=== PATIENT | female | born 1960 | race Caucasian/White ===

== ENCOUNTER 2017-11-08 14:33 | Emergency (ER) | payer OTHER ==
[~2017-11-08] VITALS: Ht 167.6 cm; Wt 76.2 kg
[2017-11-08 14:39] VITALS: TEMP 37; Ht 167.6 cm; Wt 76.2 kg
[2017-11-08] MEDS ORDERED: CITA10TA4 PO (15:20)
[2017-11-08] MEDS ORDERED: LEVO137T3 PO (15:21)
[2017-11-08] MEDS ORDERED: PRM/45 PO (15:21)
--- NOTE | 2017-11-08 15:41 | DIAGNOSTIC IMAGING REPORT ---
HEAD CT NONCONTRAST CT DOSE: 915.97 mGy.cm HISTORY: CHI/hematoma/neck pain TECHNIQUE: Multiaxial CT images of the head were performed without the use of intravenous contrast. Automated exposure control was utilized for this study. A dose lowering technique was utilized adhering to the principles of ALARA. Comparison: None. Findings: The paranasal sinuses and mastoid air cells are clear. The calvarium and skull base are intact. The ventricles and sulci are within normal limits. There is no mass, hematoma, midline shift, or acute infarct. Small posterior scalp hematoma. Impression: No acute intracranial abnormality. Posterior scalp injury. Electronically signed by: Rafi Glasgow M.D. 11/08/2017 3:39 PM Dictated Date/Time: 11/08/2017 3:35 PM
--- NOTE | 2017-11-08 15:50 | DIAGNOSTIC IMAGING REPORT ---
CERVICAL SPINE CT CT DOSE: HISTORY: CHI/hematoma/neck pain TECHNIQUE: Multiaxial CT images of the cervical spine were performed and reformatted in the sagittal and coronal plane without the use of contrast. A dose lowering technique was utilized adhering to the principles of ALARA. COMPARISON: None. FINDINGS: No fractures. No subluxation. Prevertebral soft tissues and the C1-C2 interval are intact. No pneumothorax. IMPRESSION: No fractures within the cervical spine. Electronically signed by: Rafi Glasgow M.D. 11/08/2017 3:49 PM Dictated Date/Time: 11/08/2017 3:43 PM
--- NOTE | 2017-11-08 16:11 | EMERGENCY ROOM VISIT NOTE ---
History First contact with patient: 14:46 Chief Complaint: HEAD INJURY (MINOR) Stated Complaint: HEAD SWELLING, HARD TO SWALLOW RT SIDE THROAT History of Present Illness The patient is a 57 year old female who presents to the Emergency Room with complaints of a head injury and neck pain after she slipped and fell down approximately 10-15 cement steps at a local [employer]. The patient reports that she slipped on loose gravel and initially fell forward, then spun around and fell backward. The patient denies any loss of consciousness or back pain. She reports mild right posterior lateral neck discomfort and a mild headache. She started to notice immediate swelling of the posterior scalp region shortly after the fall. The fall happened approximately 2.5 hours prior to arrival. The patient was initially seen at the [facility] urgent [facility] [place] and was subsequently referred to the emergency department for further workup. The patient rates her discomfort a 4 out of 10. She denies any visual disturbance, nausea or significant fatigue. Review of Systems 10 system review was performed and was negative except for pertinent positives and negatives as indicated in history of present illness Past Medical/Surgical History Medical Problems: (1) Anxiety (2) Hypothyroidism Surgical Problems: (1) No history of previous surgery Family History Unremarkable Social History Smoking Status: Never Smoker Alcohol Use: occasionally Marital Status: Housing Status: lives with family Occupation Status: employed Current/Historical Medications Scheduled Citalopram Hydrobromide (Citalopram Hydrobromide), 30 MG PO DAILY Estrogens, Conjugated (Premarin), 0.45 MG PO DAILY Levothyroxine Sodium (Levothyroxine Sodium), 137 MCG PO DAILY Physical Exam Vital Signs Date Time Temp Pulse Resp B/P (MAP) Pulse Ox O2 Delivery O2 Flow Rate FiO2 11/08/17 14:39 37.0 79 20 169/89 98 Room Air Physical Exam CONSTITUTIONAL: Healthy and well nourished. Alert and oriented X 3 with positive affect. Patient does not appear in any acute distress. GCS 15. HEENT: Examination shows a mild occipital hematoma. No laceration noted. Pupils equal, round and reactive. No epistaxis, subconjunctival hemorrhage, hemotympanum, raccoon's eyes or banks sign. NECK: Patient has minimal tenderness to palpation of the right posterior lateral soft tissue and muscle. She has no focal tenderness through the central cervical spine. No tenderness to palpation through the sternocleidomastoids. The patient is actively moving the neck without any significant discomfort. RESPIRATORY: Clear to auscultation bilaterally with no wheezing, crackles, rhonchi or stridor. CARDIOVASCULAR: Regular rate and rhythm with no murmurs, rubs or gallops. MUSCULOSKELETAL: Full range of motion of all joints without discomfort. Patient has no tenderness to palpation of the intrascapular region. She has full range of motion of the shoulders without discomfort. Equal handgrip bilaterally. No focal tenderness through the central thoracolumbar spine. INTEGUMENTARY: No rash or other significant dermatologic conditions noted. NEUROLOGIC: Cranial nerves II-XII grossly intact. No focal neurologic deficits noted. Negative pronator drift. No ataxia with ambulation. Medical Decision & Procedures ER Provider Diagnostic Interpretation: Noncontrast CT of the head does not show any evidence for fracture or intracranial bleed. Radiologist report is as follows: HEAD CT NONCONTRAST CT DOSE: 915.97 mGy.cm HISTORY: CHI/hematoma/neck pain TECHNIQUE: Multiaxial CT images of the head were performed without the use of intravenous contrast. Automated exposure control was utilized for this study. A dose lowering technique was utilized adhering to the principles of ALARA. Comparison: None. Findings: The paranasal sinuses and mastoid air cells are clear. The calvarium and skull base are intact. The ventricles and sulci are within normal limits. There is no mass, hematoma, midline shift, or acute infarct. Small posterior scalp hematoma. Impression: No acute intracranial abnormality. Posterior scalp injury. Noncontrast CT of the cervical spine does not show any obvious fractures. Radiologist report is as follows: CERVICAL SPINE CT CT DOSE: HISTORY: CHI/hematoma/neck pain TECHNIQUE: Multiaxial CT images of the cervical spine were performed and reformatted in the sagittal and coronal plane without the use of contrast. A dose lowering technique was utilized adhering to the principles of ALARA. COMPARISON: None. FINDINGS: No fractures. No subluxation. Prevertebral soft tissues and the C1-C2 interval are intact. No pneumothorax. IMPRESSION: No fractures within the cervical spine. ED Course Patient history and physical exam were performed. Nurse's notes were reviewed. Vital signs were reviewed, showing an elevated blood pressure of 169/80. The patient does not appear in any acute distress. GCS 15. The patient refused any analgesics on initial exam. Noncontrast CT of the head and cervical spine were normal. The patient was encouraged to intermittently apply ice to areas of discomfort. Ibuprofen and Tylenol in alternating fashion as needed for additional pain relief. She was encouraged to follow-up with her PCP as needed for any persistent symptoms, returning to the emergency department for any progressively worsening headache, vomiting, concerning neurologic symptoms or other concerning findings. The patient was happy with plan of care, voiced understanding of all discharge instructions, and rated her overall discomfort a 3 out of 10 at the time of discharge. The patient was encouraged to have her PCP recheck her blood pressure as her pressure was elevated in the emergency department. Medical Decision Medication Reconcilliation Current Medication List: was personally reviewed by me Blood Pressure Screening Patient's blood pressure: Elevated blood pressure Blood pressure disposition: Referred to PCP Impression Primary Impression: Cervical strain Additional Impressions: Scalp hematoma Fall down steps Elevated blood pressure reading Departure Information Referrals No Doctor, Assigned (PCP) Patient Instructions [facility] Problem Qualifiers Primary Impression: Cervical strain Encounter type: initial encounter Qualified Codes: S16.1XXA - Strain of muscle, fascia and tendon at neck level, initial encounter Additional Impressions: Scalp hematoma Encounter type: initial encounter Qualified Codes: S00.03XA - Contusion of scalp, initial encounter Fall down steps Encounter type: initial encounter Qualified Codes: W10.8XXA - Fall (on) ( from) other stairs and steps, initial encounter
[2017-11-08 16:19] VITALS: BP 142/88; PULSE 58; O2SAT 98
== END 2017-11-08 16:29 | disposition home or self-care (01) ==
LOC: C.EDB 14:37 → C.EDD 16:29
DX: S00.03XD Contusion of scalp, subsequent encounter (principal); S16.1XXD Strain of muscle, fascia and tendon at neck level, subsequent encounter; W10.8XXD Fall (on) (from) other stairs and steps, subsequent encounter; Y92.59 Other trade areas as the place of occurrence of the external cause; F41.9 Anxiety disorder, unspecified; E03.9 Hypothyroidism, unspecified; R03.0 Elevated blood-pressure reading, without diagnosis of hypertension; Z79.899 Other long term (current) drug therapy

== ENCOUNTER 2018-08-01 16:04 | Inpatient (IN) ==
[2018-08-01] MEDS ORDERED: ACETAMINOPHEN 500 MG TAB PO STA (17:25)
[2018-08-01] MEDS ORDERED: SODIUM CHLORIDE 0.9% 1000ML 2,000 ML IV ONE (17:25)
[2018-08-01] MEDS ORDERED: ONDANSETRON INJ 2 MG/ML 2 ML VIAL IV STA (17:25)
[2018-08-01 17:39] LABS: Basophils # (auto) 0.01 K/uL (0-0.2); Basophils % (auto) 0.1 %; Eosinophils # (auto) 0.01 K/uL (0-0.5); Eosinophils % (auto) 0.1 %; Hematocrit (blood only) 36.7 % (37-47); Immature Granulocytes # (auto) 0.03 K/uL (0.00-0.02); Immature Granulocytes % (auto) 0.3 %; Lymphocytes # (auto) 0.81 K/uL (1.2-3.4); Lymphocytes % (auto) 8.7 %; Mean Corpuscular Hgb Conc 35.4 g/dL (32-36); Mean Corpuscular Volume 88.2 fL (80-100); Mean Platelet Volume 10.8 fL (7.4-10.4); Monocytes % (auto) 10.8 %; Neutrophils # (auto) 7.44 K/uL (1.4-6.5); Platelet Count 182 K/uL (130-400); RDW Standard Deviation 38.5 fL (36.4-46.3); Red Blood Count 4.16 M/uL (4.2-5.4)
[2018-08-01 17:51] LABS: Albumin Level 3.5 gm/dl (3.4-5.0); BUN Creatinine Ratio 7.6 (10-20); Calcium 8.8 mg/dl (8.5-10.1); Creatinine Clr Calc Pharmacy 72.9 ml/min; Est GFR (African American) 79.6; Est GFR (Non-African American) 68.6; Potassium 3.3 mmol/L (3.5-5.1)
[2018-08-01 17:54] LABS: Albumin Globulin Ratio 0.9 (0.9-2); Bilirubin,Total 0.5 mg/dl (0.2-1); Globulin 4.1 gm/dl (2.5-4.0); Total Protein 7.6 gm/dl (6.4-8.2)
[2018-08-01 18:32] LABS: Appearance Urine Cloudy (Clear); Bacteria Urine Automated 4+ (Negative); Bilirubin Urine Negative (Negative); Blood Urine Trace (Negative); Cast Urine Automated 0 /lpf (0-5); Color Urine Yellow; Epithelial Cell Urine Auto 0-5 /lpf (0-5); Glucose Urine UA Negative (Negative); Ketones Urine 1+ (Negative); Leukocyte Esterase Urine 3+ (Negative); Nitrite Urine Positive (Negative); Protein Urine Negative (Negative); RBC Urine Automated 0-4 /hpf (0-4); Specific Gravity Urine 1.009 (1.000-1.030); Urobilinogen Urine Negative (Negative); WBC Urine Automated >30 /hpf (0-5)
[2018-08-01] MEDS ORDERED: IOVERSOL 100ml IV PRN (18:34)
--- NOTE | 2018-08-01 18:54 | CT Scan Report ---
ABDOMEN AND PELVIS CT WITH IV CONTRAST CT DOSE: 498.26 mGy.cm HISTORY: fever L flank pain w/ recent UTI TECHNIQUE: Multiaxial CT images of the abdomen and pelvis were performed following the use of intrave nous contrast. A dose lowering technique was utilized adhering to the principles of ALARA. COMPARISON STUDY: None. FINDINGS: The lung bases are clear. No pneumoperitoneum. No pneumatosis. No fractures within the visu alized osseous structures. A 9 mm hypodense lesion within the right hepatic lobe. This is technically too small to characterize but favors a cyst. The spleen, adrenal glands, pancreas, and gallbladder a re unremarkable. No retroperitoneal lymphadenopathy. Normal caliber abdominal aorta. The bladder is u nremarkable. The uterus is surgically absent. Normal right kidney. No hydronephrosis. Heterogeneous e nhancement with adjacent fat stranding at the upper pole of the left kidney. This favors a focal pyel onephritis. No abscess identified at this time. The ureters are normal and course and caliber. Modera te well-formed stool within the colon. No bowel wall thickening or obstruction. Normal appendix. IMPRESSION: 1. Heterogeneous enhancement with adjacent fat stranding at the upper pole of the left kidney. This f avors a focal pyelonephritis. Recommend correlation with urinalysis. 2. No bowel wall thickening or obstruction. 3. No hydronephrosis. Electronically signed by: Rafi Glasgow M.D. 08/01/2018 6:53 PM
[2018-08-01] MEDS ORDERED: cefTRIAXone SODIUM 2,000 MG in DEXTROSE 5% 50 ML IV SCH (19:00)
[2018-08-01] MEDS ORDERED: POTASSIUM CHLORIDE 10 MEQ TABCR PO STA (22:04)
[2018-08-01] MEDS ORDERED: ONDANSETRON INJ 2 MG/ML 2 ML VIAL IV PRN (22:04)
[2018-08-01] MEDS ORDERED: CEFEPIME CONSULT ACTIVE PRN (22:32)
[2018-08-01] MEDS: SODIUM CHLORIDE 0.9% 1000ML 1,000 ML IV SCH (22:49)
[2018-08-01] MEDS ORDERED: CEFEPIME 2,000 MG in SYRINGE 7.5 ML IV SCH (23:00)
[2018-08-01] MEDS ORDERED: Nursing to Pharmacy Communication ONE (23:40)
[2018-08-01] MEDS: ACETAMINOPHEN 325 MG TAB PO PRN (23:44)
[2018-08-01] MEDS: LEVOTHYROXINE SODIUM 137 MCG TABLET PO SCH (23:48)
[2018-08-01] MEDS: CITALOPRAM 20 MG TAB PO SCH (23:48)
--- NOTE | 2018-08-02 00:02 | Emergency Department Note ---
Entered by Charity Coles acting as a scribe for Yogi Wilson DO History of Present Illness General Chief complaint: Illness Stated complaint: NECK/BACK HURTS, MEMORYLOSS,NAUSEA,LOSS OF BALANCE Source: patient History of Present Illness Onset (ago): day(s) 3 Location: left and right Pain Consistency: + other (worsening ) Maximum Pain Intensity: 8 Quality: + aching Associated symptoms: + fever/chills, + headaches and + other (positive back pain; positive left-sided abdominal pain; positive neck pain; negative burning with urination; positive urine odor; negative runny nose; negative sore throat; positive lightheaded with standing ); no cough and no rash The patient is a 58 year old female who presents to the Emergency Room with complaints of worsening whole body achiness that began 3 days prior to arrival. The patient states that she has had fevers and chills that began 2 days ago. The patient states that she has had left-sided neck pain for the past 2 months, and states that she has had left-sided back pain that radiates to her abdomen for the past 3 weeks. She states that this back pain has now moved to the right side of the back as well. The patient states that she had a UTI 3 times over the past two months, and states that she last took antibiotics 3 weeks ago. The patient denies any current burning with urination, but states that last week her urine had an odor. The patient denies cough, runny nose, sore throat, and rashes. She states that she had a headache this morning and states that she has been having lightheadedness with standing that resolves after a minute. Home Medications Home Medications Medication Instructions Recorded Confirmed Type calcium carbonate-vitamin D3 1 cap PO DAILY 08/01/18 08/01/18 History [Calcium 600 + D(3)] cholecalciferol (vitamin D3) 0 unit PO DAILY 08/01/18 08/01/18 History citalopram 20 mg PO DAILY 08/01/18 08/01/18 History conjugated estrogens [Premarin] 0.45 mg PO DAILY 08/01/18 08/01/18 History esomeprazole magnesium 40 mg PO DAILY 08/01/18 08/01/18 History glucosamine-chondroitin [Osteo 1 tab PO DAILY 08/01/18 08/01/18 History Bi-Flex] levothyroxine 137 mcg PO DAILY 08/01/18 08/01/18 History multivitamin [Multiple Vitamins] 1 tab PO DAILY 08/01/18 08/01/18 History omega 0-gox-ncs-fish oil [Fish Oil] 2 cap PO DAILY 08/01/18 08/01/18 History Allergies Allergy/AdvReac Type Severity Reaction Status Date / Time codeine AdvReac Severe Nausea Verified 08/01/18 20:34 erythromycin base AdvReac Severe Nausea Verified 08/01/18 20:34 Past Med/Surg History Medical History Anxiety Hypothyroidism Social History Communication Ability: Effective 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 and A total of 10 systems reviewed and were otherwise negative Physical Exam Vital Signs Vital Signs - 24 hr 08/01/18 16:09 08/01/18 17:59 08/01/18 18:02 Temperature 39.2 C H Temperature Source Oral Sepsis Recent Fever Within 48 Hours No Sepsis New/Unexplained Change in Mental Status No Sepsis Action Taken by Nursing No Action Required Pulse Rate 104 H 93 H 95 H Pulse Rate [Right Finger] Pulse Rate from SpO2 Sensor 96 H Pulse Rhythm Regular Pulse Rhythm [Right Finger] Pulse Strength [Right Finger] Respiratory Rate 18 20 18 Respiratory Effort / Characteristics Respiratory Depth Normal Blood Pressure 124/76 177/96 H Blood Pressure [Right Arm] Blood Pressure Mean 92 123 Blood Pressure Mean [Right Arm] Pulse Oximetry 99 99 97 Oxygen Delivery Method Room Air 08/01/18 18:40 08/01/18 19:04 Temperature 37.8 C H Temperature Source Oral Sepsis Recent Fever Within 48 Hours Sepsis New/Unexplained Change in Mental Status Sepsis Action Taken by Nursing Pulse Rate Pulse Rate [Right Finger] 89 Pulse Rate from SpO2 Sensor Pulse Rhythm Pulse Rhythm [Right Finger] Regular Pulse Strength [Right Finger] Normal Respiratory Rate 20 Respiratory Effort / Characteristics Non-Labored Spontaneous Respiratory Depth Normal Blood Pressure Blood Pressure [Right Arm] 142/83 H Blood Pressure Mean Blood Pressure Mean [Right Arm] 102 Pulse Oximetry 98 Oxygen Delivery Method Room Air GENERAL: Sitting up. Alert, well appearing, well nourished, no distress, non- toxic EYE EXAM: normal conjunctiva OROPHARYNX: no exudate, no erythema, lips, buccal mucosa, and tongue normal and mucous membranes are moist NECK: supple, no nuchal rigidity, no adenopathy, non-tender LUNGS: Clear to auscultation. Normal chest wall mechanics HEART: no murmurs, S1 normal and S2 normal ABDOMEN: abdomen soft, non-tender, normo-active bowel sounds, no masses, no rebound or guarding. BACK: Back is symmetrical on inspection and there is no deformity, no midline tenderness. Tender throughout the left flank. Positive left CVA tenderness. SKIN: no rashes and no bruising UPPER EXTREMITIES: upper extremities are grossly normal. LOWER EXTREMITIES: No pitting edema. NEURO EXAM: Normal sensorium, cranial nerves II-XII intact, normal speech, no weakness of arms, no weakness of legs. Course ED COURSE: Vital signs were reviewed and showed febrile and tachycardic. The patients medical record was reviewed The above diagnostic studies were performed and reviewed. ED treatments and interventions as stated above. 1718: The patient was evaluated in room A3. A complete history and physical examination was performed. 1939: Upon reevaluation, the patient has some chills but is feeling better.I discussed my findings with the patient and she understands and agrees with the treatment plan. Based on the patients age, coexisting illnesses, exam and lab findings the decision to treat as an inpatient was made. The patient remained stable while under my care. 1943: I [facility] the [facility] further evaluation. Administered Medications Acetaminophen (Tylenol) 650 mg PO Q4H PRN PRN Reason: pain/fever Stop: 08/31/18 22:03 Last Admin: 08/01/18 23:44 Dose: 650 mg Documented by: [id number] Citalopram Hydrobromide (Celexa) 20 mg PO DAILY LIZZIE Stop: 09/01/18 08:59 Last Admin: 08/01/18 23:48 Dose: 20 mg Documented by: [id number] Admin: 08/01/18 23:48 Dose: 20 mg Documented by: [id number] Sodium Chloride (Nss 1000ml) 1,000 mls @ 125 mls/hr IV .Q8H LIZZIE Stop: 08/31/18 22:03 Last Admin: 08/01/18 22:49 Dose: 125 mls/hr Documented by: [id number] Cefepime HCl 2,000 mg/ Syringe 20 mls @ 5.5 mls/min IV Q12H LIZZIE; Protocol Stop: 08/11/18 22:59 Last Admin: 08/01/18 23:43 Dose: 5.5 mls/min Documented by: [id number] Levothyroxine Sodium (Levothyroxine Sodium) 137 mcg PO DAILYBB LIZZIE Stop: 09/01/18 06:29 Last Admin: 08/01/18 23:48 Dose: 137 mcg Documented by: [id number] Admin: 08/01/18 23:48 Dose: 137 mcg Documented by: [id number] Discontinued Medications Acetaminophen (Tylenol) 1,000 mg PO NOW STA Stop: 08/01/18 17:26 Last Admin: 08/01/18 17:54 Dose: 1,000 mg Documented by: [id number] Sodium Chloride (Nss 1000ml) 2,000 mls @ 999 mls/hr IV .Q2H1M ONE Stop: 08/01/18 19:25 Last Infusion: 08/01/18 19:58 Dose: 0 mls/hr Documented by: [id number] Admin: 08/01/18 17:49 Dose: 999 mls/hr Documented by: [id number] Ceftriaxone Sodium 2,000 mg/ (Dextrose) 70 mls @ 100 mls/hr IV DAILY LIZZIE; Annemarie col Stop: 08/03/18 18:59 Last Infusion: 08/01/18 19:58 Dose: 0 mls/hr Documented by: [id number] Admin: 08/01/18 19:04 Dose: 100 mls/hr Documented by: [id number] Ioversol (Optiray 320 100ml) 89 ml IV ONCE PRN PRN Reason: Interaction Checking Stop: 08/05/18 18:33 Last Admin: 08/01/18 18:34 Dose: 89 ml Documented by: [id number] Ondansetron HCl (Zofran) 4 mg IV NOW STA Stop: 08/01/18 17:26 Last Admin: 08/01/18 17:52 Dose: 4 mg Documented by: [id number] Potassium Chloride (Klor-Con M10) 20 meq PO NOW STA Stop: 08/01/18 22:05 Last Admin: 08/01/18 23:42 Dose: 20 meq Documented by: [id number] Medical Decision Making Differential Diagnosis Differential diagnosis: Etiologies such as sepsis, UTI, pneumonia, metabolic, electrolyte abnormalities, cardiac sources, intracerebral event, toxicologic, neurologic, as well as others were entertained. Medical Records Attestation: I reviewed the patient's medical records. Home Medications Current Medication List: was personally reviewed by me Laboratory Data Attestation: I reviewed the patient's lab results. Result diagrams: 08/01/18 17:03 08/01/18 17:03 Lab Results 08/01/18 08/01/18 08/01/18 Range/Units 17:03 17:03 17:41 WBC 9.30 (4.8-10.8) K/uL RBC 4.16 L (4.2-5.4) M/uL Hgb 13.0 (12.0-16.0) g/dL Hct 36.7 L (37-47) % MCV 88.2 (80-100) fL MCH 31.3 (25-34) pg MCHC 35.4 (32-36) g/dL RDW Std Deviation 38.5 (36.4-46.3) fL RDW Coeff of Bryant 12.0 (11.5-14.5) % Plt Count 182 (130-400) K/uL MPV 10.8 H (7.4-10.4) fL Immature Gran % (Auto) 0.3 % Neut % (Auto) 80.0 % Lymph % (Auto) 8.7 % [place] % (Auto) 10.8 % Eos % (Auto) 0.1 % Baso % (Auto) 0.1 % Immature Gran # (Auto) 0.03 H (0.00-0.02) K/uL Neut # (Auto) 7.44 H (1.4-6.5) K/uL Lymph # (Auto) 0.81 L (1.2-3.4) K/uL [place] # (Auto) 1.00 H (0.11-0.59) K/uL Eos # (Auto) 0.01 (0-0.5) K/uL Baso # (Auto) 0.01 (0-0.2) K/uL Sodium 137 (136-145) mmol/L Potassium 3.3 L (3.5-5.1) mmol/L Chloride 104 (98-107) mmol/L Carbon Dioxide 24 (21-32) mmol/L Anion Gap 9.0 (3-11) BUN 7 (7-18) mg/dl Creatinine 0.92 (0.6-1.2) mg/dl Est Cr Clr Drug Dosing 72.9 ml/min Est GFR ( Amer) 79.6 Est GFR (Non-Af Amer) 68.6 BUN/Creatinine Ratio 7.6 L (10-20) Glucose 97 (70-99) mg/dl POC Lactic Acid Tom 0.92 (0.90-1.70) mmol/L Calcium 8.8 (8.5-10.1) mg/dl Total Bilirubin 0.5 (0.2-1) mg/dl AST 28 (15-37) U/L ALT 34 (12-78) U/L Alkaline Phosphatase 87 (45-117) U/L Total Protein 7.6 (6.4-8.2) gm/dl Albumin 3.5 (3.4-5.0) gm/dl Globulin 4.1 H (2.5-4.0) gm/dl Albumin/Globulin Ratio 0.9 (0.9-2) Lipase 54 L (73-393) U/L Urine Color Urine Appearance (Clear) Urine pH (4.5-7.5) Ur Specific [place] (1.000-1.030) Urine Protein (Negative) Urine Glucose (UA) (Negative) Urine Ketones (Negative) Urine Blood (Negative) Urine Nitrite (Negative) Urine Bilirubin (Negative) Urine Urobilinogen (Negative) Ur Leukocyte Esterase (Negative) Urine WBC (Auto) (0-5) /hpf Urine RBC (Auto) (0-4) /hpf U Hyaline Cast (Auto) (0-5) /lpf U Epithel Cells (Auto) (0-5) /lpf Urine Bacteria (Auto) (Negative) POC Ur Test (NEG) Influenza Type A Ag (Neg) Influenza Type B Ag (Neg) 08/01/18 08/01/18 08/01/18 Range/Units 18:02 18:02 19:05 WBC (4.8-10.8) K/uL RBC (4.2-5.4) M/uL Hgb (12.0-16.0) g/dL Hct (37-47) % MCV (80-100) fL MCH (25-34) pg MCHC (32-36) g/dL RDW Std Deviation (36.4-46.3) fL RDW Coeff of Bryant (11.5-14.5) % Plt Count (130-400) K/uL MPV (7.4-10.4) fL Immature Gran % (Auto) % Neut % (Auto) % Lymph % (Auto) % [place] % (Auto) % Eos % (Auto) % Baso % (Auto) % Immature Gran # (Auto) (0.00-0.02) K/uL Neut # (Auto) (1.4-6.5) K/uL Lymph # (Auto) (1.2-3.4) K/uL [place] # (Auto) (0.11-0.59) K/uL Eos # (Auto) (0-0.5) K/uL Baso # (Auto) (0-0.2) K/uL Sodium (136-145) mmol/L Potassium (3.5-5.1) mmol/L Chloride (98-107) mmol/L Carbon Dioxide (21-32) mmol/L Anion Gap (3-11) BUN (7-18) mg/dl Creatinine (0.6-1.2) mg/dl Est Cr Clr Drug Dosing ml/min Est GFR ( Amer) Est GFR (Non-Af Amer) BUN/Creatinine Ratio (10-20) Glucose (70-99) mg/dl POC Lactic Acid Tom (0.90-1.70) mmol/L Calcium (8.5-10.1) mg/dl Total Bilirubin (0.2-1) mg/dl AST (15-37) U/L ALT (12-78) U/L Alkaline Phosphatase (45-117) U/L Total Protein (6.4-8.2) gm/dl Albumin (3.4-5.0) gm/dl Globulin (2.5-4.0) gm/dl Albumin/Globulin Ratio (0.9-2) Lipase (73-393) U/L Urine Color Yellow Urine Appearance Cloudy A (Clear) Urine pH 6.0 (4.5-7.5) Ur Specific [place] 1.009 (1.000-1.030) Urine Protein Negative (Negative) Urine Glucose (UA) Negative (Negative) Urine Ketones 1+ H (Negative) Urine Blood Trace H (Negative) Urine Nitrite Positive A (Negative) Urine Bilirubin Negative (Negative) Urine Urobilinogen Negative (Negative) Ur Leukocyte Esterase 3+ H (Negative) Urine WBC (Auto) >30 H (0-5) /hpf Urine RBC (Auto) 0-4 (0-4) /hpf U Hyaline Cast (Auto) 0 (0-5) /lpf U Epithel Cells (Auto) 0-5 (0-5) /lpf Urine Bacteria (Auto) 4+ H (Negative) POC Ur Test NEG (NEG) Influenza Type A Ag Neg for Influ A (Neg) Influenza Type B Ag Neg for Influ B (Neg) Imaging Data Radiologist's Impression: Radiology results as stated below per my review and the radiologist's interpretation: ABDOMEN AND PELVIS CT WITH IV CONTRAST CT DOSE: 498.26 mGy.cm HISTORY: fever L flank pain w/ recent UTI TECHNIQUE: Multiaxial CT images of the abdomen and pelvis were performed following the use of intravenous contrast. A dose lowering technique was utilized adhering to the principles of ALARA. COMPARISON STUDY: None. FINDINGS: The lung bases are clear. No pneumoperitoneum. No pneumatosis. No fractures within the visualized osseous structures. A 9 mm hypodense lesion within the right hepatic lobe. This is technically too small to characterize but favors a cyst. The spleen, adrenal glands, pancreas, and gallbladder are unremarkable. No retroperitoneal lymphadenopathy. Normal caliber abdominal aorta. The bladder is unremarkable. The uterus is surgically absent. Normal right kidney. No hydronephrosis. Heterogeneous enhancement with adjacent fat stranding at the upper pole of the left kidney. This favors a focal pyelonephritis. No abscess identified at this time. The ureters are normal and course and caliber. Moderate well-formed stool within the colon. No bowel wall thickening or obstruction. Normal appendix. IMPRESSION: 1. Heterogeneous enhancement with adjacent fat stranding at the upper pole of the left kidney. This favors a focal pyelonephritis. Recommend correlation with urinalysis. 2. No bowel wall thickening or obstruction. 3. No hydronephrosis. Electronically signed by: Rafi Glasgow M.D. 08/01/2018 6:53 PM Blood Pressure Blood Pressure Findings: Elevated blood pressure Blood Pressure Disposition: elevated BP felt to be situational MDM Narrative Patient is a 58-year-old female who presents the ER for fevers associate with back and flank pain. Vitals show the patient is febrile and tachycardic. Labs showed no significant leukocytosis or anemia. BMP with mild hypokalemia. LFTs bilirubin and lipase is unremarkable. UA with nitrates leuks white cells and bacteria. was negative. Influenza was negative. CT confirms pyelonephritis as well as exam. Patient was given IV Rocephin, 2 L IV fluids, Tylenol and updated at bedside. Discussed case with the hospitalist for admission secondary to sepsis and pyelonephritis. Impression & Plan Sepsis, Pyelonephritis Discharge Plan Visit Data *Final* Discharge Date/Time: 08/01/18 21:53 Chief Complaint: Illness Stated Complaint: NECK/BACK HURTS, MEMORYLOSS,NAUSEA,LOSS OF BALANCE ED Provider: Yogi Wilson Discharge Problem: Sepsis, Pyelonephritis Patient Disposition: Admitted As Inpatient Discharge Instructions Interventions: ED Discharge Assessment Last Done: 08/01/18 21:53 Discharge Problem: Sepsis Qualifiers: Sepsis type: sepsis due to unspecified organism Qualified Code(s): A41.9 - Sepsis, unspecified organism The scribe's documentation has been prepared under my direction and personally reviewed by me in its entirety. I confirm that the note above accurately reflects all work, treatment, procedures, and medical decision making performed by me.
[2018-08-02] MEDS ORDERED: AZTREONAM CONSULT ACTIVE PRN (02:56)
[2018-08-02] MEDS: ACETAMINOPHEN 325 MG TAB PO PRN ×3 (05:47→18:06)
[2018-08-02] MEDS: SODIUM CHLORIDE 0.9% 1000ML 1,000 ML IV SCH ×3 (05:48→23:22)
[2018-08-02 06:00] LABS: Hemoglobin 11.3 g/dL (12.0-16.0); Mean Corpuscular Hgb Conc 33.2 g/dL (32-36); Mean Corpuscular Volume 91.4 fL (80-100); Mean Platelet Volume 12.5 fL (7.4-10.4); Platelet Count 99 K/uL (130-400); RDW Coefficient of Variation 12.1 % (11.5-14.5); RDW Standard Deviation 40.6 fL (36.4-46.3); Red Blood Count 3.72 M/uL (4.2-5.4)
[2018-08-02 06:01] LABS: Basophils # (auto) 0.01 K/uL (0-0.2); Basophils % (auto) 0.2 %; Eosinophils # (auto) 0.03 K/uL (0-0.5); Eosinophils % (auto) 0.5 %; Immature Granulocytes # (auto) 0.02 K/uL (0.00-0.02); Immature Granulocytes % (auto) 0.3 %; Lymphocytes # (auto) 1.37 K/uL (1.2-3.4); Lymphocytes % (auto) 21.1 %; Monocytes # (auto) 1.07 K/uL (0.11-0.59); Monocytes % (auto) 16.5 %; Neutrophils % (auto) 61.4 %; Platelet Estimate Decreased (Normal); RBC Morphology Unremarkable
[2018-08-02 06:11] LABS: BUN Creatinine Ratio 9.5 (10-20); Creatinine Clr Calc Pharmacy 80.8 ml/min; Est GFR (African American) 90.1; Est GFR (Non-African American) 77.7; Potassium 3.5 mmol/L (3.5-5.1)
--- NOTE | 2018-08-02 06:35 | History and Physical Report ---
DATE OF ADMISSION: 08/01/2018 CHIEF COMPLAINT: Not feeling well, back pain, chills, sweating. HISTORY OF PRESENT ILLNESS: This is a 58-year-old female with past medical history significant for anxiety, hypothyroidism, GERD, presents with not feeling well since last Wednesday. The patient had 3 bouts of UTI since last 2 months, she took antibiotic 3 times x3 days each time. She is from [place]. She comes here for work every 6 weeks for 1 week. Since last Wednesday again she developed some burning micturition. Previous UTIs, she used to take Pyridium, she took Pyridium, the burning micturition went away and she developed severe back pain and she was taking 4 Advil and she was feeling better, but then again today she was not feeling well was nauseous and having severe back pain and feeling chills and sweaty when she came to the ER. She has a mild temperature spike in the ER, blood pressure is okay. Pulse is okay. There is no leukocytosis, but her CAT scan showing left pyelonephritis and urinalysis was positive. The patient was profusely sweating, but after Tylenol and some fluid, she is feeling better. On antibiotics, she is feeling better. Had some headache today. She has blurred vision. She recently had laser surgery and she has an appointment with fundraising specialist. No earache, no runny nose, no sore throat, no difficulty swallowing. Appetite is not great since last few days. No chest pain, no shortness of breath, no cough, some nausea today. The back pain which was radiating into the left groin has improved now, but there is no burning micturition today and there is no hematuria. Normal bowel movements. She is usually constipated. No blood in the stools. No swelling in the legs. No rash. ALLERGIES: CODEINE, ERYTHROMYCIN BASE. PAST MEDICAL HISTORY: As mentioned above. PAST SURGICAL HISTORY: She had a partial hysterectomy and appendectomy and bladder surgeries. MEDICATIONS: The patient is on Synthroid 1000 mcg daily, calcium with vitamin D daily, citalopram 20 mg daily, Premarin 0.5 mg daily, Nexium 40 mg daily, Osteo Bi-Flex 1 tablet daily, multivitamins daily, omega 3 fish oil two capsules daily. FAMILY HISTORY: Significant for father of cancer in his 50s. Mother had diabetes and heart disorder. SOCIAL HISTORY: Smokes couple of cigarettes a week. Denies any alcohol use. She is from [place]. Lives with her . REVIEW OF SYMPTOMS: As per HPI. Rest of review of systems negative. PHYSICAL EXAMINATION: GENERAL: The patient is of moderate build, not in acute distress. VITAL SIGNS: Temperature 37.8, pulse 89, respiratory rate 20, blood pressure 142/83, oxygen 98% on room air. HEENT: No pallor, no icterus. Pupils equal, round, and reactive to light. NECK: No JVD, no neck masses, no carotid bruit. CARDIOVASCULAR: S1, S2 heard, regular rate and rhythm, no murmur, no gallop. RESPIRATORY SYSTEM: Normal AP diameter. No thyromegaly. No wheezing, no crackles. ABDOMEN: Soft, bowel sounds present. Nontender. No distention. CENTRAL NERVOUS SYSTEM: Cranial nerves II-XII grossly intact. Nonfocal. EXTREMITIES: No edema, no erythema. LABS: WBC 9.3, hemoglobin 13, hematocrit 36.7, platelets 182. Sodium 137, potassium 3.3, chloride 104, bicarbonate 24, BUN 7, creatinine 0.9, serum glucose 97, point of care lactic acid 0.9, calcium 8.8, total bilirubin 0.5, AST 20, ALT 34, alkaline phosphatase 87, lipase 54. Urinalysis positive for nitrite and leukocyte esterase. Influenza A and B negative. CT of the abdomen and pelvis shows heterogeneous enhancement with adjacent fat stranding at the upper pole of left kidney. This favors a focal pyelonephritis. Recommend correlation with urinalysis. ASSESSMENT AND PLAN: 1. This is a 58-year-old female who presents with left pyelonephritis, Patient had 3 episodes of UTI in the last 3 months. She took antibiotics for 3 days each time, again she has developed symptoms since last Wednesday with burning micturition for which she took Pyridium and severe back pain for which she was taking ibuprofen but then symptoms progressed, she was having chills, profuse sweating and severe back pain today, which prompted her to ER and imaging studies showed left pyelonephritis. There is mild temperature spike, but no leukocytosis. We will empirically treat her with IV cefepime and follow the cultures and may need 2 weeks of antibiotic and we will change to p.o. antibiotics once the cultures are available. Continue IV fluids. 2. Hypothyroidism. Continue Synthroid. 3. Gastroesophageal reflux disease. Continue Nexium. 4. Anxiety. Continue citalopram. 5. Deep venous thrombosis prophylaxis, sequential compression devices for now. 6. Disposition: Closely monitor in the medical floor. Level 1 full code. MTDD
[2018-08-02] MEDS: AZTREONAM 1,000 MG in DEXTROSE 5% 100 ML IV SCH ×3 (08:22→23:23)
[2018-08-02] MEDS: MULTIVITAMIN TAB PO SCH (08:53)
[2018-08-02] MEDS: CALCIUM 600MG + VIT D 400 IU TAB PO SCH (08:53)
[2018-08-02] MEDS: PANTOprazole 40 MG TAB PO SCH (08:53)
[2018-08-02] MEDS ORDERED: NON-FORMULARY MEDICATION (Glucosamine-Chondroitin [Osteo Bi-Flex] 1 TAB) PO SCH (09:00)
--- NOTE | 2018-08-02 13:05 | Hospitalist Progress Note ---
Date of Service August 02, 2018 Assessment & Plan (1) Pyelonephritis: History of recurrent UTI for the last 2 months Treated with short course of antibiotic x3 Presented with back pain chills and sweating Received 1 dose of ceftriaxone, 1 dose of cefepime and continued with aztreonam Urine and blood culture have been sent Patient is clinically much better Urine is growing gram-negative bacilli await sensitivity Present on Admission?: Yes (2) Sepsis: Presented with chills and sweating Noted to have temp of more than 39 degrees and tachycardic in the emergency room Presented with sepsis on admission Hemodynamics normalized within a few hours (3) Anxiety: No acute symptoms (4) Hypothyroidism: Continue supplement Likely discharge tomorrow on oral antibiotic Subjective 08/02 Patient is seen and examined in medical floor Is a 58-year-old female with history of recurrent UTI for the last 2 months was admitted with fever and chills and back pain Noted to have pyelonephritis on CAT scan Has been feeling a lot better since this morning and denies any back pain and any symptoms of UTI No fever and/or chills Review of Systems Review of Systems: All systems reviewed and unremarkable except as noted Gastrointestinal: + problem reported (Moderate tenderness noted over left renal angle) Physical Exam Physical Exam: No apparent distress at rest Constitutional: well developed and well nourished; no acute distress Eyes: PERRL, conjunctivae normal, anicteric sclerae ENMT: external ear and nose normal, oropharynx normal Neck: trachea midline, no thyromegaly Respiratory: normal respiratory effort Auscultation: lungs clear to auscultation bilaterally Cardiovascular: Rate/Rhythm: regular rate and regular rhythm Gastrointestinal (Abdomen): Tender left renal angle Neurologic: PERRL, EOMI, accommodation nl, no face palsy, no dysarthria Psychiatric: A+Ox3, euthymic affect Lymphatic: no cervical or axillary lymphadenopathy Results & Data Vital Signs (Past 12 Hours) Vital Signs Temp Pulse Resp BP Pulse Ox 08/02/18 07:36 37.3 C 77 18 127/73 96 Laboratory Results Short CBC 08/01/18 08/02/18 Range/Units 17:03 05:18 WBC 9.30 6.50 (4.8-10.8) K/uL Hgb 13.0 11.3 L (12.0-16.0) g/dL Hct 36.7 L 34.0 L (37-47) % Plt Count 182 99 L (130-400) K/uL BMP 08/01/18 08/02/18 17:03 05:18 Sodium 137 141 Potassium 3.3 L 3.5 Chloride 104 111 H Carbon Dioxide 24 25 BUN 7 8 Creatinine 0.92 0.83 Glucose 97 101 H Calcium 8.8 8.0 L Liver Function 08/01/18 Range/Units 17:03 Total Bilirubin 0.5 (0.2-1) mg/dl AST 28 (15-37) U/L ALT 34 (12-78) U/L Alkaline Phosphatase 87 (45-117) U/L Albumin 3.5 (3.4-5.0) gm/dl Urine 08/01/18 Range/Units 18:02 Urine Color Yellow Urine Appearance Cloudy A (Clear) Urine pH 6.0 (4.5-7.5) Ur Specific [place] 1.009 (1.000-1.030) Urine Protein Negative (Negative) Urine Glucose (UA) Negative (Negative) Medications Administered Current Inpatient Medications Acetaminophen (Tylenol) 650 mg PO Q4H PRN PRN Reason: pain/fever Stop: 08/31/18 22:03 Last Admin: 08/02/18 11:05 Dose: 650 mg Documented by: Aztreonam (Aztreonam Consult Active) 1 ea N/A UD PRN PRN Reason: Consult Stop: 09/01/18 02:55 Citalopram Hydrobromide (Celexa) 20 mg PO HS LIZZIE Stop: 09/01/18 20:59 Diphenhydramine HCl (Benadryl Capsule) 25 mg PO TID PRN PRN Reason: Allergic Reaction Stop: 08/31/18 23:57 Last Admin: 08/02/18 05:54 Dose: 25 mg Documented by: Sodium Chloride (Nss 1000ml) 1,000 mls @ 125 mls/hr IV .Q8H LIZZIE Stop: 08/31/18 22:03 Last Admin: 08/02/18 05:48 Dose: 125 mls/hr Documented by: Aztreonam 1,000 mg/ Dextrose 110 mls @ 100 mls/hr IV Q8H LIZZIE; Protocol Stop: 08/12/18 07:59 Last Infusion: 08/02/18 10:29 Dose: Infused Documented by: Levothyroxine Sodium (Levothyroxine Sodium) 137 mcg PO HS [facility] Stop: 09/01/18 20:59 Multivitamins (Multivitamin Tab) 1 tab PO DAILY LIZZIE Stop: 09/01/18 08:59 Last Admin: 08/02/18 08:53 Dose: 1 tab Documented by: Multivitamins/Minerals (Caltrate Plus) 1 tab PO DAILY [facility] Stop: 09/01/18 08:59 Last Admin: 08/02/18 08:53 Dose: 1 tab Documented by: Ondansetron HCl (Zofran) 4 mg IV Q6H PRN PRN Reason: Nausea Stop: 08/31/18 22:03 Pantoprazole Sodium (Protonix) 40 mg PO DAILY [facility] Stop: 09/01/18 08:59 Last Admin: 08/02/18 08:53 Dose: 40 mg Documented by: (1) Sepsis Sepsis type: sepsis due to unspecified organism Qualified Code(s): A41.9 - Sepsis, unspecified organism
[2018-08-02] MEDS ORDERED: LEVOTHYROXINE SODIUM 137 MCG TABLET PO SCH (21:00)
[2018-08-02] MEDS ORDERED: CITALOPRAM 20 MG TAB PO SCH (21:00)
[2018-08-03] MEDS: ACETAMINOPHEN 325 MG TAB PO PRN ×2 (00:53→07:25)
[2018-08-03] MEDS: SODIUM CHLORIDE 0.9% 1000ML 1,000 ML IV SCH (06:14)
[2018-08-03] MEDS: PANTOprazole 40 MG TAB PO SCH (07:26)
[2018-08-03] MEDS: CALCIUM 600MG + VIT D 400 IU TAB PO SCH (07:26)
[2018-08-03] MEDS: MULTIVITAMIN TAB PO SCH (07:26)
[2018-08-03] MEDS: AZTREONAM 1,000 MG in DEXTROSE 5% 100 ML IV SCH (07:31)
[2018-08-03 07:48] LABS: Hematocrit (blood only) 32.9 % (37-47); Hemoglobin 10.9 g/dL (12.0-16.0); Mean Corpuscular Hgb Conc 33.1 g/dL (32-36); Mean Corpuscular Volume 92.2 fL (80-100); Platelet Count 104 K/uL (130-400); RDW Coefficient of Variation 12.1 % (11.5-14.5); RDW Standard Deviation 41.3 fL (36.4-46.3); Red Blood Count 3.57 M/uL (4.2-5.4); White Blood Count 5.27 K/uL (4.8-10.8)
[2018-08-03 08:07] LABS: Basophils # (auto) 0.01 K/uL (0-0.2); Basophils % (auto) 0.2 %; Eosinophils # (auto) 0.05 K/uL (0-0.5); Eosinophils % (auto) 0.9 %; Immature Granulocytes # (auto) 0.02 K/uL (0.00-0.02); Immature Granulocytes % (auto) 0.4 %; Lymphocytes # (auto) 1.23 K/uL (1.2-3.4); Lymphocytes % (auto) 23.3 %; Monocytes # (auto) 0.69 K/uL (0.11-0.59); Monocytes % (auto) 13.1 %; Neutrophils # (auto) 3.27 K/uL (1.4-6.5); Neutrophils % (auto) 62.1 %
[2018-08-03 08:12] LABS: BUN Creatinine Ratio 6.9 (10-20); Calcium 8.3 mg/dl (8.5-10.1); Creatinine Clr Calc Pharmacy 87.1 ml/min; Est GFR (African American) 98.6; Est GFR (Non-African American) 85.1; Potassium 3.8 mmol/L (3.5-5.1)
--- NOTE | 2018-08-03 11:00 | Hospitalist Progress Note ---
Date of Service August 03, 2018 Assessment & Plan (1) Sepsis: Present on admission with fever (Temp 39 C), Tachycardia and positive UA for UTI Received IV cefepime, Rocephin and Azactam during the admission Urine cx grew Ecoli Blood cx no growth Has been afebrile for almost 24hrs Stable (2) Pyelonephritis: History of recurrent UTI for the last 2 months Treated with 3 days course of antibiotic x3 Presented with back pain chills and sweating Received 1 dose of ceftriaxone, 1 dose of cefepime On IV Azactam Urine cx growth Ecoli Will change IV Azactam to cipro 500mg BID Clinically stable (3) Anxiety: Continue celexa No acute symptoms (4) Hypothyroidism: Continue supplement Disposition Discharge home today Please schedule follow up appointment with your PCP once discharge Complete the course of the abx Subjective Pt was seen and examined Lying in bed with no distress Pt said that she feels fine She denies any dysuria, fever, palpitation and SOB Physical Exam Physical Exam: Physical Exam: No apparent distress at rest Constitutional: Well developed and well nourished; no acute distress Eyes: PERRL, conjunctivae normal, anicteric sclerae ENMT: external ear and nose normal, oropharynx normal Neck: trachea midline, no thyromegaly Respiratory: Lungs clear to auscultation bilaterally Cardiovascular: regular rate and regular rhythm Gastrointestinal NO tenderness, +BS Neurologic: PERRL, EOMI, no face palsy, no dysarthria Psychiatric: A+Ox3, euthymic affect Lymphatic: no cervical or axillary lymphadenopathy Results & Data Vital Signs (Past 12 Hours) Vital Signs Temp Pulse Resp BP Pulse Ox 08/03/18 07:53 36.7 C 66 16 140/80 96 (1) Sepsis Sepsis type: sepsis due to unspecified organism Qualified Code(s): A41.9 - Sepsis, unspecified organism
[2018-08-03] MEDS ORDERED: CIPROFLOXACIN 500 MG TAB PO SCH (12:00)
--- NOTE | 2018-08-04 21:56 | Discharge Summary ---
Date of Service August 03, 2018 Admission HPI Per Admitting Provider CHIEF COMPLAINT: Not feeling well, back pain, chills, sweating. HISTORY OF PRESENT ILLNESS: This is a 58-year-old female with past medical history significant for anxiety, hypothyroidism, GERD, presents with not feeling well since last Wednesday. The patient had 3 bouts of UTI since last 2 months, she took antibiotic 3 times x3 days each time. She is from [place]. She comes here for work every 6 weeks for 1 week. Since last Wednesday again she developed some burning micturition. Previous UTIs, she used to take Pyridium, she took Pyridium, the burning micturition went away and she developed severe back pain and she was taking 4 Advil and she was feeling better, but then again today she was not feeling well was nauseous and having severe back pain and feeling chills and sweaty when she came to the ER. She has a mild temperature spike in the ER, blood pressure is okay. Pulse is okay. There is no leukocytosis, but her CAT scan showing left pyelonephritis and urinalysis was positive. The patient was profusely sweating, but after Tylenol and some fluid, she is feeling better. On antibiotics, she is feeling better. Had some headache today. She has blurred vision. 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 No earache, no runny nose, no sore throat, no difficulty swallowing. Appetite is not great since last few days. No chest pain, no shortness of breath, no cough, some nausea today. The back pain which was radiating into the left groin has improved now, but there is no burning micturition today and there is no hematuria. Normal bowel movements. She is usually constipated. No blood in the stools. No swelling in the legs. No rash. Admission Exam Per Admitting Provider GENERAL: The patient is of moderate build, not in acute distress. VITAL SIGNS: Temperature 37.8, pulse 89, respiratory rate 20, blood pressure 142/83, oxygen 98% on room air. HEENT: No pallor, no icterus. Pupils equal, round, and reactive to light. NECK: No JVD, no neck masses, no carotid bruit. CARDIOVASCULAR: S1, S2 heard, regular rate and rhythm, no murmur, no gallop. RESPIRATORY SYSTEM: Normal AP diameter. No thyromegaly. No wheezing, no crackles. ABDOMEN: Soft, bowel sounds present. Nontender. No distention. CENTRAL NERVOUS SYSTEM: Cranial nerves II-XII grossly intact. Nonfocal. EXTREMITIES: No edema, no erythema. Principal Diagnosis Sepsis Pyelonephritis Hypothyroidism Anxiety Discharge Exam Physical Exam: No apparent distress at rest Constitutional: Well developed and well nourished; no acute distress Eyes: PERRL, conjunctivae normal, anicteric sclerae ENMT: external ear and nose normal, oropharynx normal Neck: trachea midline, no thyromegaly Respiratory: Lungs clear to auscultation bilaterally Cardiovascular: regular rate and regular rhythm Gastrointestinal NO tenderness, +BS Neurologic: PERRL, EOMI, no face palsy, no dysarthria Psychiatric: A+Ox3, euthymic affect Lymphatic: no cervical or axillary lymphadenopathy Discharge Data Allergies Allergy/AdvReac Type Severity Reaction Status Date / Time codeine AdvReac Severe Nausea Verified 08/01/18 20:34 erythromycin base AdvReac Severe Nausea Verified 08/01/18 20:34 cefepime [From Maxipime] AdvReac Intermediate Anaphylaxis Verified 08/02/18 02:23 Consultations 08/01/18 20:03 ED Decision to Admit Stat Ordered Studies 08/01/18 17:25 CT abd pelvis IV con only Stat ABDOMEN AND PELVIS CT WITH IV CONTRAST CT DOSE: 498.26 mGy.cm HISTORY: fever L flank pain w/ recent UTI TECHNIQUE: Multiaxial CT images of the abdomen and pelvis were performed following the use of intravenous contrast. A dose lowering technique was utilized adhering to the principles of ALARA. COMPARISON STUDY: None. FINDINGS: The lung bases are clear. No pneumoperitoneum. No pneumatosis. No fractures within the visualized osseous structures. A 9 mm hypodense lesion within the right hepatic lobe. This is technically too small to characterize but favors a cyst. The spleen, adrenal glands, pancreas, and gallbladder are unremarkable. No retroperitoneal lymphadenopathy. Normal caliber abdominal aorta. The bladder is unremarkable. The uterus is surgically absent. Normal right kidney. No hydronephrosis. Heterogeneous enhancement with adjacent fat stranding at the upper pole of the left kidney. This favors a focal pyelonephritis. No abscess identified at this time. The ureters are normal and course and caliber. Moderate well-formed stool within the colon. No bowel wall thickening or obstruction. Normal appendix. IMPRESSION: 1. Heterogeneous enhancement with adjacent fat stranding at the upper pole of the left kidney. This favors a focal pyelonephritis. Recommend correlation with urinalysis. 2. No bowel wall thickening or obstruction. 3. No hydronephrosis. Electronically signed by: Rafi Glasgow M.D. 08/01/2018 6:53 PM Dictated: 08/01/181846 Transcribed: 08/01/181846 Hospital Course (1) Sepsis: Present on admission with fever (Temp 39 C), Tachycardia and positive UA for UTI Received IV cefepime, Rocephin and Azactam during the admission Urine cx grew Ecoli Blood cx no growth Has been afebrile for almost 24hrs Stable (2) Pyelonephritis: History of recurrent UTI for the last 2 months Treated with 3 days course of antibiotic x3 Presented with back pain chills and sweating Received 1 dose of ceftriaxone, 1 dose of cefepime On IV Azactam Urine cx growth Ecoli Will change IV Azactam to cipro 500mg BID Clinically stable (3) Anxiety: Continue celexa No acute symptoms (4) Hypothyroidism: Continue supplement Disposition Discharge home today Please schedule follow up appointment with your PCP once discharge Complete the course of the abx Total Time Total Time Spent Total Time Spent (In Minutes): 35 minutes Total Time Includes: Examination of the Patient, Discharge Planning, Medication Reconciliation, Communication With Other Providers and Other Discharge Plan Discharge Items Patient Disposition: Home - Self-Care Reason For Visit: ILLNESS, BACK PAIN Discharge Diagnosis: Sepsis Pyelonephritis Hypothyroidism Anxiety Discharge Goals: Decrease discomfort, Improve disease control, Increase independence and Improve nutritional status Activity: Resume your previous activity Activity Comment: As tolerated Non-emergency contact: Primary Care Provider Call non-emergency contact if: you have any medication questions, your pain is not controlled, your pain is worsening and your temperature is above 101 Follow-up/Referrals: PCP,NO [Primary Care Provider] - Diet: Regular Addtl Provider Instructions: Please follow up with your primary care provider in [place] within 1 week Complete the course of the antibiotic Prescriptions: New ciprofloxacin HCl [Cipro] 500 mg tablet 500 mg PO Q12H Qty: 7 RF: 0 Continued citalopram 20 mg tablet 20 mg PO DAILY RF: 0 levothyroxine 137 mcg tablet 137 mcg PO DAILY RF: 0 esomeprazole magnesium 40 mg capsule,delayed release(DR/EC) 40 mg PO DAILY RF: 0 Premarin 0.45 mg tablet 0.45 mg PO DAILY RF: 0 cholecalciferol (vitamin D3) 1,000 unit Tablet PO DAILY RF: 0 multivitamin [Multiple Vitamins] Tablet 1 tab PO DAILY RF: 0 omega 9-piz-idz-fish oil [Fish Oil] 1,000 mg (120 mg-180 mg) Capsule 2 cap PO DAILY RF: 0 Calcium 600 + D(3) 600 mg calcium- 200 unit Capsule 1 cap PO DAILY RF: 0 glucosamine-chondroitin [Osteo Bi-Flex] 250-200 mg Tablet 1 tab PO DAILY RF: 0 Stand-Alone Forms: [facility]/Other Patient Handouts: UTI, Pyelonephritis Dc Discharge Orders: Discharge Order (Routine); Ordered 08/03/18 Ordered By: Yuri Claros Admission Data Admit Date/Time: 08/01/18 20:42 Attending Provider: Yuri Claros Admit Provider: Harvinder Gómez Primary Care Provider: PCP,NO Other Providers: Harvinder Gómez ; Vesta Laughlin Service: Medical Other Interventions: Discharge Summary Assessment (RN) Last Done: 08/03/18 11:07 DC Date/Time DO NOT enter until pt leaves facility: 08/03/18 13:02
== END 2018-08-03 13:02 | disposition home or self-care (01) | DRG 872 ==
LOC: ED 16:04 → SUATTDRO 20:42 → 3N 20:42